=== PATIENT | female | born 1985 | race Hispanic/Latino ===

== ENCOUNTER 2019-03-04 07:35 | Emergency (ER) | payer OTHER, SELFPAY ==
[2019-03-04] MEDS ORDERED: cefTRIAXone\\ROCEPHIN 1 GM VIAL ONE (07:56)
[2019-03-04] MEDS ORDERED: Lidocaine 1% PF 5 ML VIAL ONE (07:57)
== END 2019-03-04 08:08 | disposition home or self-care (01) ==
LOC: BURERS 07:35
DX: C56.9 Malignant neoplasm of unspecified ovary (principal); C78.02 Secondary malignant neoplasm of left lung; C78.01 Secondary malignant neoplasm of right lung; J03.90 Acute tonsillitis, unspecified; F17.210 Nicotine dependence, cigarettes, uncomplicated; Z71.6 Tobacco abuse counseling; Z79.01 Long term (current) use of anticoagulants
CPT/HCPCS: 87070; 96372; 99406; J0696; J2001